=== PATIENT | male | born 1980 | race Caucasian/White ===

== ENCOUNTER → 2020-01-17 12:21 | Outpatient (BNVA) | payer OTHER, SELFPAY | PROVIDERS: Visit Provider Physician Assistant | DX: Z13.89 Encounter for screening for other disorder (principal) | CPT/HCPCS: 73630; 99203 ==

== ENCOUNTER → 2020-01-19 10:28 | Outpatient (BNVA) | payer OTHER, SELFPAY | PROVIDERS: Visit Provider Physician Assistant Medical | DX: S97.82XA Crushing injury of left foot, initial encounter (principal); W23.0XXA Caught, crushed, jammed, or pinched between moving objects, initial encounter | CPT/HCPCS: 99213 ==

== ENCOUNTER 2023-11-19 14:00 | Emergency (ER) | payer OTHER, SELFPAY ==
--- NOTE | ~2023-11-19 | CT_ITS ---
EXAMINATION: CTA OF THE HEAD AND NECK CLINICAL INFORMATION: Left-sided numbness. COMPARISON: Head CT from 11/19/2023. TECHNIQUE: Test bolus sequences followed by intravenous administration 70 mL of Omnipaque 350. Helical imaging was performed in the axial plane from the mediastinum to the skull vertex. Delayed postcontrast imaging of the head was also performed. The data was processed at the medical technologist's workstation for generation of MIP sequences. Three-dimensional volume rendered reformatted images were also generated at an offline 3-D workstation. Stenoses are assessed in accordance with NASCET criteria unless otherwise indicated. This CT examination was performed using dose optimization techniques as appropriate, variously including the following: *Automated exposure control *Adjustment of mA and/or kV according to patient size (this includes techniques or standardized protocols for targeted exams where dose is matched to indication/reason for exam; i.e. extremities or head) *Use of iterative reconstruction technique DLP: 1491 mGy-cm. FINDINGS: CTA neck: The imaged aortic arch and origins of the great vessels are normal. The common carotid arteries are widely patent. The carotid bifurcations are normal. The cervical internal carotid arteries are normal. The vertebral arteries opacify normally and are of normal caliber. There is a 9 mm nodule protruding off the posterior aspect of the left thyroid lobe. There is [id number] disc space narrowing with a broad-based disc bulge and endplate spurring impressing upon the ventral thecal sac at the C4-C5 level. The imaged portions of the lungs are relatively clear with subsegmental atelectatic changes. CTA head: The intradural vertebral arteries and basilar artery are normal. The posterior cerebral arteries are widely patent. The internal carotid arteries are of normal caliber. There is question of a very small 1.5 mm aneurysm at the junction of the anterior communicating artery with the left A2 segment. The STEFANO and MCA vascular complexes bilaterally are otherwise normal. The venous sinuses opacify normally. CT/CT angio head neck IMPRESSION: Question of a very small 1.5 mm aneurysm at the junction of the anterior vena cava artery segment and the left A2 segment. Otherwise, normal CT angiogram of the head and neck. Disc-osteophyte complex at the C5-C6 level with impression upon the ventral thecal sac.
--- NOTE | ~2023-11-19 | CT_ITS ---
EXAMINATION: CT HEAD WITHOUT CONTRAST CLINICAL INFORMATION: Left face numbness for one hour. COMPARISON: None available. TECHNIQUE: Contiguous axial imaging was performed from the skull base to vertex without intravenous administration of contrast. This CT examination was performed using dose optimization techniques as appropriate, variously including the following: *Automated exposure control *Adjustment of mA and/or kV according to patient size (this includes techniques or standardized protocols for targeted exams where dose is matched to indication/reason for exam; i.e. extremities or head) *Use of iterative reconstruction technique DLP: 649 mGy-cm FINDINGS: There is no acute intracranial hemorrhage. There is no evidence of acute/subacute cerebral or cerebellar infarction. There is no mass effect or midline shift. No extra-axial fluid collection. The ventricles are normal in size. The orbits are symmetric and within normal limits. The calvarium is intact. Mastoid air cells and visualized paranasal sinuses are clear. CT/CT head/brain wo IV con IMPRESSION: No acute intracranial pathology.
[2023-11-19 14:06] VITALS: BP 146/97; PULSE 120; RESP 18; TEMP 36.1; O2SAT 98; BMI 27.1
--- NOTE | 2023-11-19 14:13 | ECG_ITS ---
Test Reason : FACE NUMBNESS Blood Pressure : / mmHG Vent. Rate : 103 BPM Atrial Rate : 103 BPM P-R Int : 140 ms QRS Dur : 080 ms QT Int : 340 ms P-R-T Axes : 056 059 035 degrees QTc Int : 445 ms Sinus tachycardia Otherwise normal ECG No previous ECGs available Referred By: Criss Bee Electronically Signed By:RADHA KIDD
[2023-11-19 14:57] LABS: MANUAL DIFF FLAG NO
[2023-11-19 15:04] LABS: Basophils Percent Auto 0.4 % (0-2); Eosinophils Absolute Auto 0.1 X10*3/uL (0.0-0.4); Eosinophils Percent Auto 0.7 % (0-4); Hematocrit 39.9 % (42.0-52.0); Hemoglobin 13.8 g/dl (14.0-18.0); Imm Gran Abs Auto 0.02 X10*3/uL (0.00-0.03); Imm Gran Pct Auto 0.3 % (0.0-0.4); Lymphocytes Percent Auto 14.1 % (20-40); Mean Corpuscular HGB Conc 34.6 g/dl (31.0-36.0); Mean Corpuscular Hemoglobin 29.6 pg (27.0-33.0); Mean Corpuscular Volume 85.6 fL (80.0-98.0); Mean Platelet Volume 9.1 fL (9.4-12.4); Monocytes Absolute Auto 0.6 X10*3/uL (0.1-1.2); Monocytes Percent Auto 8.1 % (2-11); Neutrophils Absolute Auto 5.6 x10*3/uL (2.0-8.3); Neutrophils Percent Auto 76.4 % (45-73); Platelet Count 263 X10*3/uL (160-400); Red Blood Count 4.66 X10*6/uL (4.60-5.80); Red Cell Distribution Width 12.4 % (11.0-16.0); White Blood Count 7.3 X10*3/uL (4.8-10.8)
[2023-11-19 15:05] LABS: INTERNATIONAL NORM RATIO 0.9 (0.9-1.1); Prothrombin Time 11.5 SEC (11.1-13.3)
[2023-11-19 15:23] LABS: Alanine Aminotransferase 36 U/L (0-40); Albumin Level 4.9 g/dL (3.5-5.0); Alkaline Phosphatase 89 U/L (39-117); Anion Gap 15 (12-20); Aspartate Amino Transferase 21 U/L (5-37); Bilirubin Direct 0.1 mg/dL (0.0-0.5); Bilirubin Total 0.5 mg/dL (0.0-1.0); Blood Urea Nitrogen 18 mg/dL (9-16); Calcium 10.1 mg/dL (8.4-10.2); Carbon Dioxide 24 mmol/L (22-29); Chloride 105 mmol/L (96-108); Creatinine Clr Calc Pharmacy 99.7; Estimated Glomerular Filt Rate > 60; Glucose Random 104 mg/dL (60-115); Magnesium 2.3 mg/dL (1.6-2.6); Potassium 4.3 mmol/L (3.3-5.1); Sodium 140 mmol/L (135-145); Total Protein 7.9 g/dL (6.5-8.0)
[2023-11-19 15:30] LABS: Troponin-I High Sensitivity < 2.7 ng/L (<3.5-35.0)
--- NOTE | 2023-11-19 16:06 | ED.NEUROSD ---
HPI - Neuro Symptoms/Deficit General Chief Complaint: Neuro Symptoms/Deficit Stated Complaint: l face numb Time Seen by Provider: 11/19/23 16:06 History of Present Illness ED Provider: Jodi SALINAS Narrative: The patient is a 42-year-old male who says that at around 13:00 today he started to feel a sense of numbness in his left upper lip. At 1st it seemed to be in a small area but then it seemed to be moving laterally to a larger area of the upper lip. He then also started to think that possibly something was wrong with the his left arm. He called his doctor and was advised to come to the emergency room. At the time that I am seeing him his symptoms seemed to improved but not entirely resolved. He does not really have any sense of weakness or loss of function in the left arm. No difficulty speaking. He says the sense of numbness was not uncomfortable or painful in any way. Patient has a history of hypertension and elevated cholesterol for which he is on medications. He believes that his father had a lot of vascular problems and at age 62 of heart problems. No fever, sweats, chills. No difficulty speaking. No difficulty swallowing. No visual complaints. The patient is right-handed. He does not really feel that he has any deficits in the left arm. Related Data Allergies Allergy/AdvReac Type Severity Reaction Status Date / Time No Known Allergies Allergy Verified 11/19/23 14:08 [No Known Allergies*] Review of Systems Review of Systems: Yes all other systems are reviewed and are negative [facility] Social History Social History Advance Directives: No Advance Directives Information Provided: No Do you have a plan to hurt others: No Plan Physical Exam Vital Signs: Vital Signs: Last Vital Signs Temp 97.0 F 11/19/23 17:59 Pulse 120 H 11/19/23 17:59 Resp 18 11/19/23 17:59 BP 139/99 H 11/19/23 17:59 Pulse Ox 98 11/19/23 17:59 O2 Del Method Room Air 11/19/23 17:59 BMI result Body Mass Index 27.1 Const: Other: The patient is awake and alert and does not seem in obvious distress. HEENT: Other: Face is symmetrical. Mucous membranes are moist. No obvious abnormality to the face or the head. Eyes: General: appearance normal, both eyes and all related structures Visual Hamlin: normal visual hamlin by confrontation Alignment and Position: alignment normal Eyelids: Yes eyelids normal Conjunctivae: conjunctivae normal Pupils: Equal, round and reactive pupils present EOM: EOMs intact bilaterally Neck: Other: No bruits, no JVD Resp: Effort & Inspection: normal respiratory effort Auscultation: clear to auscultation bilaterally Cardio: Rate: regular rate Rhythm: regular rhythm Heart sounds: S1 normal heart sound present and S2 normal heart sound present GI: Other: Soft and nontender Skin: Other: Skin is dry and unremarkable Neuro: Other: The patient is awake, alert, oriented, appropriate. Pupillary exam is normal. Eye movements are normal. Visual hamlin are intact to confrontation. Face is symmetrical. Speech is clear and appropriate. Strength is normal in all 4 extremities. No pronator drift. Finger-nose is normal. Heel-du is normal. No sensory deficits appreciated. No extinction or neglect. NIH stroke scale is 0. Cranial nerves: Yes Equal, round and reactive pupils present Extrem: Other: No peripheral edema Medications Administered Discontinued Medications Generic Name Dose Route Start Last Admin Trade Name Freq PRN Reason Stop Dose Admin Aspirin 81 mg 11/19/23 17:33 11/19/23 17:59 Aspirin 81 Mg Tab.Chew PO 11/19/23 17:34 81 mg ONCE ONE Administration Iohexol 70 ml 11/19/23 16:56 11/19/23 16:56 Iohexol 350 Mg/Ml 100 Ml Infus..Btl IV 11/19/23 16:57 70 ml ONCE ONE Administration Medical Decision Making Medical Decision Making [facility] Narrative: The patient is a 42-year-old male with a history of hypertension and elevated cholesterol who presents for evaluation of facial numbness that he feels above the left upper lip. He has no objective findings on neurological exam. He was mildly hypertensive on arrival and also quite tachycardic. A noncontrast head CT is negative. I explained to the patient that the significance of a negative head CT and a case like this clear. He presented fairly soon after the onset of symptoms. His symptoms are very mild. Clinically I did not have a very high suspicion that this is a stroke syndrome although he does have some risk factors. I spoke to the patient about possibly doing an angiogram to help risk stratify him. He indicated he would like to of the angiogram done. We therefore did a CT angiogram of the head and neck. The patient wanted to be discharged prior to the results in case the results took a long time. The patient was therefore discharged. The results were ultimately available and came back with an equivocal finding. 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 Otherwise, normal CT angiogram of the head and neck. I was able to reach the patient by phone and explained that there was very questionable and probably incidental finding. Questionable finding is on the left side. The patient's symptoms were left-sided facial symptoms. Therefore this finding is not likely to be responsible for the patient's presenting symptoms. Additionally the aneurysm is quite small. Aneurysms less than 3 mm are not expected to rupture or cause other symptoms. I think this may be followed up with his PCP as an outpatient. Lab Data 11/19/23 14:53 11/19/23 14:53 Labs: Lab Results 11/19/23 Range/Units 14:53 WBC 7.3 (4.8-10.8) X10*3/uL RBC 4.66 (4.60-5.80) X10*6/uL Hgb 13.8 L (14.0-18.0) g/dl Hct 39.9 L (42.0-52.0) % MCV 85.6 (80.0-98.0) fL MCH 29.6 (27.0-33.0) pg MCHC 34.6 (31.0-36.0) g/dl RDW 12.4 (11.0-16.0) % Plt Count 263 (160-400) X10*3/uL MPV 9.1 L (9.4-12.4) fL Immature Gran % (Auto) 0.3 (0.0-0.4) % Neut % (Auto) 76.4 H (45-73) % Lymph % (Auto) 14.1 L (20-40) % [place] % (Auto) 8.1 (2-11) % Eos % (Auto) 0.7 (0-4) % Baso % (Auto) 0.4 (0-2) % Lymph # (Auto) 1.0 L (1.2-4.9) X10*3/uL [place] # (Auto) 0.6 (0.1-1.2) X10*3/uL Eos # (Auto) 0.1 (0.0-0.4) X10*3/uL Baso # (Auto) 0.0 (0.0-0.2) X10*3/uL Abs Immat Gran (auto) 0.02 (0.00-0.03) X10*3/uL Absolute Neuts (auto) 5.6 (2.0-8.3) x10*3/uL Absolute Nucleated RBC 0.000 (0.0-0.012) X10*3/uL Nucleated RBC % (auto) 0.0 (0.0-0.2) /100WBC PT 11.5 (11.1-13.3) SEC INR 0.9 (0.9-1.1) Sodium 140 (135-145) mmol/L Potassium 4.3 (3.3-5.1) mmol/L Chloride 105 (96-108) mmol/L Carbon Dioxide 24 (22-29) mmol/L Anion Gap 15 (12-20) BUN 18 H (9-16) mg/dL Creatinine 1.09 (0.5-1.4) mg/dL Estim Creat Clear Calc 99.7 Estimated GFR > 60 Random Glucose 104 (60-115) mg/dL Calcium 10.1 (8.4-10.2) mg/dL Magnesium 2.3 (1.6-2.6) mg/dL Total Bilirubin 0.5 (0.0-1.0) mg/dL Direct Bilirubin 0.1 (0.0-0.5) mg/dL AST 21 (5-37) U/L ALT 36 (0-40) U/L Alkaline Phosphatase 89 (39-117) U/L Troponin I High Sens < 2.7 (<3.5-35.0) ng/L Total Protein 7.9 (6.5-8.0) g/dL Albumin 4.9 (3.5-5.0) g/dL Independent Interpretation I performed an independent interpretation of an: EKG Interpretation: EKG at 14:43 shows sinus tachycardia at 103 beats per minute. It is an otherwise normal EKG. Discharge Plan Discharge Clinical Impression: Left facial numbness Patient Disposition: Home, Self-Care Additional Instructions: It is not exactly clear what is responsible for your symptoms today. I will call you at [phone] if there are any concerning findings on the angiogram of the blood vessels of your head and neck. Otherwise I would recommend taking a baby aspirin once a day until you follow up with your regular doctor and discuss this episode further. If at any point you have significant worsening symptoms please return to the emergency department. Referrals: Lion Ramsey MD [Primary Care Provider] - (Left-sided facial numbness) Interventions: ED Discharge Assessment Last Done: 11/19/23 17:59 Discharge Date/Time: 11/19/23 18:00 Print Language: Lithuanian
[2023-11-19] MEDS: iohexoL 350 MG/ML 100 ML INFUS..BTL 70 ML IV (16:56)
[2023-11-19 17:59] VITALS: BP 139/99; PULSE 120; RESP 18; TEMP 36.1; O2SAT 98
[2023-11-19] MEDS: Aspirin 81 MG TAB.CHEW PO (17:59)
== END 2023-11-19 18:00 | disposition home or self-care (01) ==
PROVIDERS: Physician Assistant; Emergency Provider Emergency Medicine; PCP Internal Medicine
DX: R20.0 Anesthesia of skin (principal); R00.0 Tachycardia, unspecified; R29.700 NIHSS score 0
CPT/HCPCS: 36415; 70450; 70496; 70498; 80048; 80076; 83735; 84484; 85025; 85610; 93005; 99283; 99284; Q9967

== ENCOUNTER → 2024-02-28 12:05 | Outpatient (BNVA) | payer OTHER, SELFPAY | PROVIDERS: PCP Internal Medicine; Visit Provider Physician Assistant Medical | DX: S29.011A Strain of muscle and tendon of front wall of thorax, initial encounter (principal); W22.09XA Striking against other stationary object, initial encounter | CPT/HCPCS: 71101; 99202 ==

== ENCOUNTER → 2024-03-13 15:08 | Outpatient (BNVA) | payer OTHER, SELFPAY | PROVIDERS: PCP Internal Medicine; Visit Provider Physician Assistant Medical | DX: S50.11XA Contusion of right forearm, initial encounter (principal); W23.0XXA Caught, crushed, jammed, or pinched between moving objects, initial encounter | CPT/HCPCS: 99202 ==